=== PATIENT | female | born 1975 | race Caucasian/White ===

== ENCOUNTER → 2019-02-13 | Outpatient (CLI) | payer OTHER ==
--- NOTE | 2019-02-13 22:17 | US ---
EXAMINATION TYPE: US abdomen complete DATE OF EXAM: 02/13/2019 COMPARISON: NONE CLINICAL HISTORY: R10.31 RLQ Abdominal pain, pelvic pain noted day after doing 20 sit ups and noted x 4 weeks. EXAM MEASUREMENTS: Liver Length: 16.0 cm Gallbladder Wall: 0.2 cm CBD: 0.4 cm Spleen: 8.9 cm Right Kidney: 11.3 x 6.8 x 4.5 cm Left Kidney: 11.3 x 6.4 x 4.7 cm Pancreas: wnl Liver: wnl Gallbladder: wnl Evidence for sonographic Naranjo's sign: no CBD: wnl Spleen: wnl Right Kidney: wnl Left Kidney: wnl Upper IVC: wnl Abd Aorta: wnl Right of midline pelvic area at pain: Complex Fluid collections noted anteriorly and adjacent to each other with consolidated measure = 9.6 x 4.4 x 1.5cm. No fluid area is seen at same level on left pel vis. No peristalsis is seen of right pelvic fluid with Valsalva Maneuver. The visualized liver is homogenous. The intrahepatic portion of the IVC and visualized abdominal aor ta through the bifurcation are within normal limits. There is no evidence of shadowing mobile cholel ithiasis. Common bile duct is unremarkable. The visualized portions of the pancreas are homogenous. The spleen is unremarkable. Kidneys are symmetric and free of hydronephrosis. No renal lesions ar e seen. Towards the end of study scanning right medial abdominal wall at site of pain shows oval inés gated fluid collection believed in the deep subcutaneous tissue. IMPRESSION: Suspect moderate sized rectus sheath hematoma given patient's history, this can be confir med with CT if desired.
--- NOTE | 2019-02-13 22:18 | US ---
EXAMINATION TYPE: US pelvis complete transvag DATE OF EXAM: 02/13/2019 COMPARISON: See Abdominal US today for RLQ assessment. CLINICAL HISTORY: R10.31 right lower quadrant pain. Patient stated has RLQ/right pelvic pain x 4 week s noted day after doing 20 sit up exercises; ; irregular menses as had 2 cycles this month. TECHNIQUE: Transvaginal (TV) and Transabdominal (TA) . Transabdominal sonographic images of the pel vis were acquired. Transvaginal sonographic images were medically necessary to better assess the fol lowing anatomy: endometrium and ovaries Date of LMP: 02/12/2019 and LMP last week also per patient EXAM MEASUREMENTS: Uterus: 8.7 x 7.0 x 6.8 cm Endometrial Stripe: 0.6 cm Right Ovary: 5.5 x 2.5 x 3.2 cm Left Ovary: 3.3 x 1.7 x 1.9 cm 1. Uterus: Retroverted; bulbous, heterogeneous appearance to mid and upper uterus; small Nabothian c yst in Cervix 2. Endometrium: unable to correlate thickness with two menstrual cycles in past 2 weeks 3. Right Ovary: enlarged ovary; involuting simple cyst in right ovary = 2.7 x 1.7 x 2.4cm. 4. Left Ovary: small follicle is seen Spectral, color and waveform Doppler imaging shows good arterial and venous flow within the ovaries ; 5. Bilateral Adnexa: wnl 6. Posterior cul-de-sac: small amount of free fluid is seen on TA US = 2.2 x 2.6 x 1.0cm. Markedly heterogeneous retroverted uterus suspicious for fibroids. Endometrium not well visualized. T iny amount of free fluid in pelvic cul-de-sac. Both ovaries are seen. Right ovary is asymmetrically l arger with a 2.7 cm simple appearing thin-walled cyst in the periphery. IMPRESSION: Probable fibroid uterus. Incidental note of 2.7 cm simple cyst right ovary.
== END | disposition home or self-care (01) ==
LOC: RADUSMAIN 16:00
PROVIDERS: ATTEND Physician Assistant
DX: R10.31 Right lower quadrant pain (principal)
CPT/HCPCS: 76700; 76830; 76856

== ENCOUNTER → 2024-05-17 | Outpatient (CLI) | payer OTHER ==
--- NOTE | 2024-05-20 12:47 | MM ---
Reason for Exam: Screening (asymptomatic). Baseline mammogram. Patient History: Menarche at age 14. First Full-Term at age 24. Last menstrual period: 05/09/2024 Risk Values: Fauzia 5 year model risk: 0.8%. NCI Lifetime model risk: 8.4%. Prior Study Comparison: Patient's first Mammogram. Tissue Density: The breasts are extremely dense, which lowers the sensitivity of mammography. Findings: Analyzed By CAD. The pattern is symmetrical. There appear to be at least 3 groups of punctate calcifications in the outer right breast best visualized on the craniocaudal projection. There are 2 areas of grouped calcifications in the outer left breast. Additionally, in the middle position there is a distortion within the left breast. Additional evaluation of these findings is recommended with diagnostic mammography. Ultrasound may be required complete the workup. Overall Assessment: Incomplete: need additional imaging evaluation, BI-RAD 0 Management: Diagnostic Mammogram of both breasts. A negative mammogram report should not preclude additional follow up of suspicious palpable abnormalities. Patient should continue monthly self breast exam. A clinical breast exam by your physician is recommended on an annual basis and results should be correlated with mammographic findings. Note on Fauzia scores and lifetime risk: 1. A Fauzia score greater than 3% is considered moderate risk. If this is the case, consider specialist referral to assess eligibility for a risk reducing agent. 2. If overall lifetime risk for the development of breast cancer is 20% or higher, the patient may qualify for future screening with alternating mammogram and breast MRI. Electronically signed and approved by: Darell Medina D.O. Radiologis
== END | disposition home or self-care (01) ==
LOC: RADMAMWWP 16:11
PROVIDERS: ATTEND Family Medicine
DX: Z12.31 Encounter for screening mammogram for malignant neoplasm of breast (principal); R92.343 Mammographic extreme density, bilateral breasts
CPT/HCPCS: 77067

== ENCOUNTER → 2024-05-31 | Outpatient (CLI) | payer OTHER ==
--- NOTE | 2024-05-31 15:13 | MM ---
Reason for Exam: Additional evaluation requested from abnormal screening. Last screening mammogram was performed less than 1 month ago. Patient History: Menarche at age 14. First Full-Term at age 24. Last menstrual period: 05/28/2024 Risk Values: Fauzia 5 year model risk: 0.8%. NCI Lifetime model risk: 8.4%. Prior Study Comparison: 05/17/2024 Bilateral MG screening mammo w CAD, [facility]. Tissue Density: The breasts are heterogeneously dense, which may obscure small masses. Findings: Analyzed By CAD. There are multiple groups of skin calcifications seen bilaterally. There is a cluster within the upper outer right breast approximately 8 to 9 cm from the nipple at the 11:00 position which may layer on the lateral projection could reflect milk of calcium. Six-month follow-up mammography of the right breast is advised. Overall Assessment: Probably benign, BI-RAD 3 Management: Diagnostic Mammogram of the right breast. . Results were given to the patient verbally at the time of exam. Patient should continue monthly self-breast exams. A clinical breast exam by your physician is recommended on an annual basis. This exam should not preclude additional follow-up of suspicious palpable abnormalities. Note on Fauzia scores and lifetime risk: 1. A Fauzia score greater than 3% is considered moderate risk. If this is the case, consider specialist referral to assess eligibility for a risk reducing agent. 2. If overall lifetime risk for the development of breast cancer is 20% or higher, the patient may qualify for future screening with alternating mammogram and breast MRI. Electronically signed and approved by: Garcia Howell M.D. Radiologis
== END | disposition home or self-care (01) ==
LOC: RADMAMWWP 14:20
PROVIDERS: ATTEND Family Medicine
DX: R92.8 Other abnormal and inconclusive findings on diagnostic imaging of breast (principal); R92.333 Mammographic heterogeneous density, bilateral breasts
CPT/HCPCS: 77066; G0279; 77062